=== PATIENT | female | born 1965 | race Caucasian/White ===

== ENCOUNTER 2016-10-04 07:13 | Outpatient (CLI) ==
--- NOTE | 2016-10-04 09:55 | US ---
EXAM: Ultrasound abdominal wall soft tissues HISTORY: Abscess COMPARISON: None FINDINGS: Ultrasound abdominal wall soft tissues was performed in the region of clinical concern, r ight mid abdominal subcutaneous region. In this region, there is an ill-defined superficially locat ed fluid collection with mild internal complexity measuring 1.1 x 1.0 x 1.0 cm, without internal vas cularity, most consistent with abscess and appearing to have a communication to the skin. There is a tiny adjacent anechoic cyst versus less likely tiny fluid simple fluid collection measuring 0.3 cm . IMPRESSION: 1. 1.1 cm abscess as described, appears to communicate with the skin. 2. Tiny adjacent anechoic cyst versus less likely tiny fluid simple collection measuring 0.3 cm.
== END 2016-10-04 07:14 | disposition home or self-care (01) ==
LOC: RAD 07:13
PROVIDERS: ATTEND Internal Medicine
DX: L02.211 Cutaneous abscess of abdominal wall (principal)

== ENCOUNTER 2016-12-06 07:41 | Outpatient (CLI) | payer OTHER ==
--- NOTE | 2016-12-06 09:16 | US ---
EXAM: Left lower extremity venous doppler. HISTORY: Left leg pain and swelling for 1 week. COMPARISON: None available. TECHNIQUE: Multiple grayscale and color doppler images were obtained. FINDINGS: There is normal flow, compressibility and augmentation of flow within the left common fem oral, greater saphenous, profunda, femoral, popliteal, posterior tibial, anterior tibial and peronea l veins. IMPRESSION: No evidence for left lower extremity deep vein thrombosis at the levels examined.
== END 2016-12-06 07:42 | disposition home or self-care (01) ==
LOC: RAD 07:41
PROVIDERS: ATTEND Internal Medicine
DX: M79.662 Pain in left lower leg (principal); M79.89 Other specified soft tissue disorders

== ENCOUNTER 2017-01-17 08:28 | Emergency (ER) ==
[2017-01-17 08:36] VITALS: BP 115/83; TEMP 99; BMI 28.3
--- NOTE | 2017-01-17 10:14 | CT ---
EXAM: CT scan of the left foot and left ankle without contrast HISTORY: Pain TECHNIQUE: Imaging of the left foot and ankle was performed without contrast. Sagittal and coronal reconstructions and axial images were provided for interpretation. Comparison CT scan of the left foot dated 04/19/2015. FINDINGS: There is stable appearance of anterior plate fixation of the tail navicular articulation. There is stable appearance of surgical plating of the articulation between the medial cuneiform linsey ne and the base of the first metatarsal. There is a normal appearance of the surgical hardware. The bones are osteopenic. The soft tissues appear within normal limits. The distal tibia, distal fibula appear intact. No acute abnormalities are seen within the talus. T he calcaneus appears intact. The soft tissues of the left ankle appear within normal limits. The linsey jamila are osteopenic. IMPRESSION: Stable appearance of postoperative changes of surgical plating of the talonavicular art iculation as well as surgical plating of the articulation between the medial cuneiform bone and the base of the first metatarsal. No acute fractures are seen. There is a normal appearance of the surgical hardware. The bones of the left foot and left ankle appear to be diffusely osteopenic.
--- NOTE | 2017-01-17 10:25 | ED.PDOC ---
General ED Provider: Dr. GRAHAM DUMONT Chief Complaint: Foot Pain/Injury Stated Complaint: left foot pain and ankle Time Seen by Physician: 08:29 Mode of Arrival: Walk-In Information Source: Patient Exam Limitations: No limitations Primary Care Provider: XUAN HARTMAN Nursing and Triage Documentation Reviewed and Agree: Yes Musculoskeletal Complaint Exam - Ankle/Foot Complaint/Exam Location of Injury: Reports: Left, Foot Mechanism of Injury: Reports: Trauma (but this is a chronic pain) Onset/Duration: chronic Symptoms Are: Reports: Still present Onset of Pain: Reports: Weeks Initial Severity: Moderate Current Severity: Moderate Location: Reports: Discrete Character: Reports: Aching Alleviating: Reports: Rest Aggravating: Reports: None Able to Bear Weight: Yes Gout Risk Factors: Reports: >40 years old Related Surgical History: Reports: None Achilles Tendon Abnormality: Yes Differential Diagnosis: Closed Fracture Review of Systems - Review Of Systems Constitutional: Reports: No symptoms Eyes: Reports: No symptoms Ears, Nose, Mouth, Throat: Reports: No symptoms Respiratory: Reports: No symptoms Cardiac: Reports: No symptoms GI: Reports: No symptoms : Reports: No symptoms Musculoskeletal: Reports: Joint pain Skin: Reports: No symptoms Neurological: Reports: No symptoms Endocrine: Reports: No symptoms Hematologic/Lymphatic: Reports: No symptoms All Other Systems: Reviewed and Negative Past Medical History - Past Medical History Previously Healthy: Yes Endocrine: Reports: Hypothyroid Cardiovascular: Reports: None Respiratory: Reports: None Hematological: Reports: None Gastrointestinal: Reports: None Genitourinary: Reports: None Neuro/Psych: Reports: None Musculoskeletal: Reports: Other (foot pain ) Cancer: Reports: None Last Menstrual Period: 01/04 - Surgical History General Surgical History: Reports: None - Family History Family History: Reports: None - Social History Smoking Status: Never smoker Hx Substance Use: No Alcohol Screening: None - Immunizations Tetanus Shot up to Date: Yes Physical Exam - Physical Exam Appearance: Well-appearing, No pain distress, Well-nourished Eyes: DAISY, EOMI, Conjunctiva clear ENT: Ears normal, Nose normal, Oropharynx normal Respiratory: Airway patent, Breath sounds clear, Breath sounds equal, Respirations nonlabored Cardiovascular: RRR, Pulses normal, No rub, No murmur GI/: Soft, Nontender, No masses, Bowel sounds normal, No Organomegaly Musculoskeletal: Normal strength, ROM intact, No edema, No calf tenderness Skin: Warm, Dry, Normal color Neurological: Sensation intact, Motor intact, Reflexes intact, Cranial nerves intact, Alert, Oriented Psychiatric: Affect appropriate, Mood appropriate Interpretation - Radiology Interpretation Radiology Interpretation By: Radiologist Radiology Results: No acute changes Critical Care Note - Critical Care Note Total Time (mins): 0 Course - Course Orders, Labs, Meds: Orders Category Date Time Status CT ANKLE LEFT WITHOUT CONTRAST Stat RADS 01/17/17 08:[address] FOOT LEFT WITHOUT CONTRAST Stat RADS 01/17/17 08:52 Completed Vital Signs: Temp Pulse Resp BP Pulse Ox 01/17/17 08:29 99.0 F 104 H 20 115/83 99 Departure - Departure Time of Disposition: 10:25 Disposition: HOME SELF-CARE Discharge Problem: Left foot pain Instructions: Arthralgia (ED) Condition: Good Pt referred to PMD for follow-up: No Additional Instructions: Please call your Family Physician as soon as possible to schedule a follow-up appointment. Allergies/Adverse Reactions: Allergies No Known Allergies Allergy (Unverified 01/17/17 08:36) Home Medications: Ambulatory Orders Clonidine HCl 0.1 mg PO BEDTIME 01/17/17 Levothyroxine Sodium [Synthroid] 25 mcg PO DAILY 01/17/17 Spironolactone 50 mg PO DAILY 01/17/17
== END 2017-01-17 10:34 | disposition home or self-care (01) ==
LOC: ED 08:28
DX: M79.672 Pain in left foot (principal)
CPT/HCPCS: 99283

== ENCOUNTER 2017-07-25 09:50 | Outpatient (CLI) ==
--- NOTE | 2017-07-25 10:56 | DI ---
EXAM: Right knee four views HISTORY: Pain COMPARISON: None FINDINGS: No fracture or dislocation. Mild spurring of the tibial spines. Mild retropatellar osteo phytes. Mild narrowing medial compartment. Possible small joint effusion. IMPERSSION: 1. No fracture or dislocation. 2. Mild osteoarthritis 3. Possible small joint effusion.
--- NOTE | 2017-07-25 11:13 | DI ---
EXAM: Right foot three views HISTORY: Pain COMPARISON: 01/11/2014 FINDINGS: No fracture or dislocation. Mild osteoarthritis first MTP joint with joint space narrowin g osteophyte formation. Small plantar calcaneal spur. No focal soft tissue abnormality. IMPERSSION: 1. No fracture or dislocation. 2. Mild osteoarthritis first MTP joint. 3. Small plantar calcaneal spur.
--- NOTE | 2017-07-25 12:28 | DEXA ---
EXAM: DEXA scan. HISTORY: Post menopausal. COMPARISON: 10/22/2005. TECHNIQUE: Green Is Goodo [id number]. DEXA scan lumbar spine performed. Quality of the study is good. BMD is 1.082 grams per square centi meter. T-score -0.8. Z-score -0.4. DEXA scan hips performed. Quality of the study is good. BMD 0.792 grams per square centimeter. T-sc ore -1.7. Z-score -1.3. IMPRESSION: According to the World Health Organization classification, lumbar spine bone mineral density is tino l. Hip bone mineral density demonstrates osteopenia, with increased fracture risk. Ten-year major o steoporotic fracture risk is 10.7%. Ten-year hip fracture risk is 1.3%. Since prior study, there mckeon s been no significant decrease in lumbar spine bone mineral density.
== END 2017-07-25 09:51 | disposition home or self-care (01) ==
LOC: RAD 09:50
PROVIDERS: ATTEND Internal Medicine
DX: M25.561 Pain in right knee (principal); M79.671 Pain in right foot; Z78.0 Asymptomatic menopausal state

== ENCOUNTER 2017-09-19 08:15 | Outpatient (CLI) ==
--- NOTE | 2017-09-19 17:38 | MRI ---
EXAM: Lumbar spine MRI without contrast. HISTORY: Lumbar spine pain. COMPARISON: None. TECHNIQUE: Multiplanar, multisequence MR images were acquired of the lumbar spine without contrast. FINDINGS: Conus medullaris ends at L1-2 and has normal signal intensity. There is mild thoracolumba r levoscoliosis centered at L2-3. The lumbar vertebra are normal in height and intrinsic bone marrow signal. A benign intraosseous hemangioma is present at L3. There is minor lumbar ventral spondylos is and disc desiccation at L1-2 and L4-5. The partially visualized liver and both kidneys are unrema rkable. There is dilatation of the common bile duct which tapers to the duodenum. There are no para vertebral masses. L1-2: There is a minor disc bulge that is asymmetric to the left and a minor chronic Schmorl's node along the left L2 superior endplate. There is no central canal stenosis. Neural foramina are patent . L2-3: The intervertebral disc is normal. L3-4: There is a minor disc bulge that is asymmetric to the left which minimally narrows the inferio r left neural foramen. Minor left hypertrophic facet arthropathy is present. There is no central ca nal stenosis or significant foraminal stenosis. L4-5: There is a minor left posterior disc bulge or tiny disc protrusion and moderate right and mild -moderate left hypertrophic facet arthropathy with moderate right and small left facet effusions. Th is produces triangulation of the thecal sac. L5-S1: The intervertebral disc is normal. There is mild right and moderate left hypertrophic facet arthropathy without foraminal stenosis. IMPRESSION: Mild lumbar degenerative spondylosis and moderate lower lumbar facet arthropathy withou t central canal stenosis.
== END 2017-09-19 08:16 | disposition home or self-care (01) ==
LOC: RAD 08:15
PROVIDERS: ATTEND Internal Medicine
DX: M54.5 Low back pain (principal)